=== PATIENT | female | born 1965 | race African-American/Black ===

== ENCOUNTER → 2017-10-24 | Outpatient (CLI) | payer OTHER ==
[~2017-10-24] MED LIST: IBUPROFEN200 M2
== END ==
LOC: ULTRA 07:12
DX: R10.11 Right upper quadrant pain (principal)

== ENCOUNTER → 2018-05-28 | Outpatient (CLI) | payer OTHER | LOC: ULTRA 01:11 | DX: R92.2 Inconclusive mammogram (principal) ==

== ENCOUNTER 2019-01-15 12:28 | Emergency (ER) | payer OTHER ==
[~2019-01-15] VITALS: Ht 157.5 cm; Wt 56.2 kg
[2019-01-15 12:58] LABS: MCH 26.7 pg (26.0-34.0); MCHC 32.8 g/dL (28.0-37.0); MONOCYTES 7.5 % (1.0-8.0)
[2019-01-15 13:00] LABS: ABSOLUTE NEUTROPHILS 1.6 thou/uL (1.4-8.2); BASOPHILS 1.5 % (0.0-2.0); EOSINOPHILS 3.2 % (0.0-3.0); HEMATOCRIT 39.2 % (37.0-47.0); HEMOGLOBIN 12.9 gm/dL (12.0-15.0); LYMPHOCYTES 46.6 % (24.0-44.0); MCV 81.3 fL (80.0-100.0); PLATELET COUNT 162 thou/uL (150-400); POLYS 41.2 % (36.0-66.0); RBC 4.82 mil/uL (4.20-5.00); RDW 14.3 % (10.5-14.5); WBC 3.9 thou/uL (4.0-11.0)
[2019-01-15 13:06] LABS: ANION GAP 8 mmol/L (7-16); BUN 14 mg/dL (7-18); CALCIUM 9.1 mg/dL (8.5-10.1); CHLORIDE 105 mmol/L (98-107); CO2 27 mmol/L (21-32); CREATININE 0.9 mg/dL (0.6-1.0); GLUCOSE 93 mg/dL (74-106); SODIUM 140 mmol/L (136-145)
[2019-01-15 13:15] LABS: TROPONIN-I <0.06 ng/mL (<0.06)
--- NOTE | 2019-01-15 16:26 | EKG ---
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 : 1965 Requested By: Shayne Rubio Order Number: [id number] MD: Juancarlos Johnson Measurements Intervals [place] Rate: 58 P: 62 DE: 142 QRS: -2 QRSD: 99 T: 8 QT: 391 QTc: 385 Interpretive Statements Sinus rhythm Early R-wave progression Compared to ECG 06/14/2011 18:06:43 No significant changes Electronically Signed On 01-15-2019 16:25:55 CDT by Juancarlos Johnson [email or web address] ��������������������������������������������� <ELECTRONICALLY SIGNED> ���������������������������������������� By: Juancarlos Johnson MD, [facility] ��������������������������������������������� 01/15/19 1625 1236 1236 Juancarlos Johnson MD, FACC /EPI
[2019-01-15 16:50] VITALS: BP 136/82
== END 2019-01-15 16:50 | disposition home or self-care (01) ==
LOC: ER 12:28
PROVIDERS: Emergency Medicine
DX: R07.89 Other chest pain (principal); R79.1 Abnormal coagulation profile

== ENCOUNTER → 2020-01-16 | Outpatient (CLI) | payer OTHER | LOC: BC 08:54 → ULTRA 08:54 → BC 15:13 | PROVIDERS: ATTEND Obstetrics & Gynecology | DX: N60.41 Mammary duct ectasia of right breast (principal); N63.10 Unspecified lump in the right breast, unspecified quadrant; N60.01 Solitary cyst of right breast ==

== ENCOUNTER → 2020-09-24 | Outpatient (CLI) | payer OTHER | LOC: BC 08:29 | PROVIDERS: ATTEND Internal Medicine | DX: N63.0 Unspecified lump in unspecified breast (principal); R92.8 Other abnormal and inconclusive findings on diagnostic imaging of breast ==